=== PATIENT | female | born 1970 | race African-American/Black ===

== ENCOUNTER 2017-11-16 10:26 | Inpatient (IN) | payer OTHER ==
[2017-11-16 11:03] VITALS: BMI 26.3
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
[2017-11-16] MEDS ORDERED: MAGNESIUM CITRATE 300 ML BOTTLE PO PRN (16:28)
[2017-11-16] MEDS ORDERED: MAG HYDROX/AL HYDROX/SIMETH 30 ML UNIT-DOSE CUP PO PRN (16:28)
[2017-11-16] MEDS ORDERED: LOPERAMIDE HCL 2 MG CAPSULE PO PRN (16:28)
[2017-11-16] MEDS ORDERED: ACETAMINOPHEN 325 MG TABLET (FP) PO PRN (16:28)
[2017-11-16] MEDS ORDERED: MENTHOL/PHENOL 1 EACH UD MM PRN (16:28)
[2017-11-16] MEDS ORDERED: MAGNESIUM HYDROX 2400MG/30ML ORAL SUSPENSION 30 ML CUP PO PRN (16:28)
[2017-11-16] MEDS ORDERED: P-EPHED 60MG/TRIPROLIDI 2.5MG TABLET PO PRN (16:28)
[2017-11-16] MEDS ORDERED: IBUPROFEN 400 MG TABLET (FP) PO PRN (16:28)
[2017-11-16] MEDS ORDERED: hydrOXYzine PAMOATE 25 MG CAPSULE (FP) PO PRN (16:28)
[2017-11-16] MEDS ORDERED: guaiFENesin/D-METHORPHAN HB 10 ML UNIT-DOSE CUPS PO PRN (16:28)
[2017-11-16] MEDS ORDERED: TUBERCULIN PPD 5 TU/0.1ML VIAL ID ONE ×2 (19:21→19:25)
[2017-11-16] MEDS: THIAMINE HCL 100 MG TABLET (FP) PO SCH (21:58)
[2017-11-16] MEDS: PATIENT'S OWN MEDICATION (NON-FORMULARY) (Nitrofurantoin Monohyd/M-Cryst [Nitrofurantoin M PO SCH (21:58)
[2017-11-16] MEDS: metroNIDAZOLE 250 MG TABLET PO SCH (21:58)
[2017-11-16] MEDS: NICOTINE POLACRILEX 2 MG GUM BUC PRN (22:00)
[2017-11-17] MEDS: amLODIPine BESYLATE 10 MG TABLET (FP) PO SCH (09:38)
[2017-11-17] MEDS: metroNIDAZOLE 250 MG TABLET PO SCH ×2 (09:38→21:26)
[2017-11-17] MEDS: PATIENT'S OWN MEDICATION (NON-FORMULARY) (Nitrofurantoin Monohyd/M-Cryst [Nitrofurantoin M PO SCH ×2 (09:39→21:26)
[2017-11-17] MEDS: PRENATAL VITAMINS W/ FOLIC ACID TABLET (FP) PO SCH (09:39)
[2017-11-17 10:53] LABS: URINE APPEARANCE TURBID; URINE BILIRUBIN NEGATIVE (<2.0 mg/dL); URINE GLUCOSE (UA) NEGATIVE (NEGATIVE); URINE KETONE NEGATIVE (NEGATIVE); URINE LEUK ESTERASE NEGATIVE (NEGATIVE); URINE NITRITE NEGATIVE (NEGATIVE); URINE UROBILINOGEN NEGATIVE mg/dL (0.2-1.0)
[2017-11-17 11:09] LABS: URINE PROTEIN 2+ (NEGATIVE)
[2017-11-17 11:10] LABS: URINE COLOR YELLOW
[2017-11-17 11:22] LABS: CALCIUM OXALATE CRYSTALS MANY /hpf (NONE SEEN); EPI CELLS RARE /HPF (FEW); URINE BACTERIA FEW /hpf (NONE SEEN); URINE HYALINE CAST 10 /lpf; URINE MUCUS MODERATE
[2017-11-17 12:23] LABS: HEMATOCRIT 40.5 % (32.4-45.2); HEMOGLOBIN 13.5 GM/dL (10.7-15.3); MCH 29.4 pg (25.7-33.7); MCHC 33.2 g/dl (32.0-36.0); MEAN CELL VOLUME 88.4 fl (80-96); MEAN PLT VOLUME 9.3 fl (7.5-11.1); PLATELET COUNT 233 K/MM3 (134-434); RBC 4.58 M/mm3 (3.60-5.2); RDW 15.5 % (11.6-15.6); WHITE BLOOD COUNT 5.1 K/mm3 (4.0-10.0)
[2017-11-17 12:45] LABS: ALBUMIN 3.1 g/dl (3.4-5.0); ALK PHOS 60 U/L (45-117); ANION GAP 10 MMOL/L (8-16); BILIRUBIN,TOTAL 0.4 mg/dL (0.2-1); BLOOD UREA NITROGEN 13 mg/dL (7-18); CALCIUM 9.2 mg/dL (8.5-10.1); CHLORIDE 107 mmol/L (98-107); CO2 26 mmol/L (21-32); GLUCOSE,RANDOM 121 mg/dL (74-106); POTASSIUM 3.6 mmol/L (3.5-5.1); SGOT/AST 17 U/L (15-37); SGPT/ALT 17 U/L (13-61); SODIUM 143 mmol/L (136-145); TOT PROT 6.2 g/dl (6.4-8.2)
--- NOTE | 2017-11-17 15:52 | EKG ---
Test Reason : Blood Pressure : / mmHG Vent. Rate : 069 BPM Atrial Rate : 069 BPM P-R Int : 148 ms QRS Dur : 072 ms QT Int : 392 ms P-R-T Axes : 049 029 045 degrees QTc Int : 420 ms NORMAL SINUS RHYTHM WITH SINUS ARRHYTHMIA POSSIBLE LEFT ATRIAL ENLARGEMENT LEFT VENTRICULAR HYPERTROPHY ABNORMAL ECG WHEN COMPARED WITH ECG OF 23-NOV-2015 21:16, NO SIGNIFICANT CHANGE WAS FOUND Confirmed by MD Gerhard, Jaylan ([id number]) on 11/17/2017 3:51:38 PM Referred By: Confirmed By:Jaylan Hennessy MD
[2017-11-17] MEDS ORDERED: PT OWN MED DRAWER 7, Y5N ONE (20:06)
[2017-11-17] MEDS: THIAMINE HCL 100 MG TABLET (FP) PO SCH (21:26)
[2017-11-17] MEDS: MELATONIN 5 MG TABLETS PO PRN (21:27)
--- NOTE | 2017-11-17 21:50 | PN ---
S Progress Note Note: Psychiatric nurse practitioner soil conservationist note: Chart reviewed. Backup Administrator able to speak to patient on phone. Pt. reports h/o accepting seroquel 200mg. States she has received prescriptions from [facility]. Reports taking seroquel 200mg two nights ago. Will order Seroquel 200mg qhs.
[2017-11-17] MEDS: QUEtiapine FUMARATE 200 MG TABLET PO SCH (21:58)
[2017-11-18] MEDS ORDERED: PT OWN MED DRAWER 7, Y5N ONE (08:20)
[2017-11-18] MEDS: PATIENT'S OWN MEDICATION (NON-FORMULARY) (Nitrofurantoin Monohyd/M-Cryst [Nitrofurantoin M PO SCH ×2 (10:02→21:05)
[2017-11-18] MEDS: metroNIDAZOLE 250 MG TABLET PO SCH ×2 (10:03→21:05)
[2017-11-18] MEDS: amLODIPine BESYLATE 10 MG TABLET (FP) PO SCH (10:03)
[2017-11-18] MEDS: PRENATAL VITAMINS W/ FOLIC ACID TABLET (FP) PO SCH (10:05)
--- NOTE | 2017-11-18 10:51 | PN ---
[facility] Progress Note Note: Pt c/o that she has not been seen by psychiatrist since her admission. Review of her chart shows that the psychiatrist had a discussion with her yesterday and had ordered Seroquel. Will inform pt and put a psych consult request in for pt.
[2017-11-18] MEDS: NICOTINE POLACRILEX 2 MG GUM BUC PRN (15:26)
[2017-11-18] MEDS: QUEtiapine FUMARATE 200 MG TABLET PO SCH (21:05)
[2017-11-18] MEDS: THIAMINE HCL 100 MG TABLET (FP) PO SCH (21:05)
[2017-11-19] MEDS: MELATONIN 5 MG TABLETS PO PRN (00:32)
[2017-11-19 06:41] VITALS: BP 148/98; PULSE 89; TEMP 98.1
--- NOTE | 2017-11-19 08:46 | PN ---
[facility] Progress Note Note: Patient decided to sign out today AMA despite our strong recommendations to continue inpatient rehabilitation treatment.Patient states that she doesnt have appropriate clothes (?).Patient has no motivations for treatment.she will continue to address her issues on outpatient basis.
== END 2017-11-19 08:55 | disposition home or self-care (01) | DRG 772 ==
LOC: YASAS 10:26 → Y3E 16:45
PROC: HZ42ZZZ Group Counseling for Substance Abuse Treatment, Cognitive-Behavioral (ICD-10-PCS; principal; 2017-11-16)
DX: F10.230 Alcohol dependence with withdrawal, uncomplicated (principal); F14.20 Cocaine dependence, uncomplicated; F17.210 Nicotine dependence, cigarettes, uncomplicated; F31.9 Bipolar disorder, unspecified; F25.0 Schizoaffective disorder, bipolar type; F32.9 Major depressive disorder, single episode, unspecified; F41.9 Anxiety disorder, unspecified; F43.10 Post-traumatic stress disorder, unspecified; I10 Essential (primary) hypertension; K21.9 Gastro-esophageal reflux disease without esophagitis
CPT/HCPCS: 36415; 80053; 81003; 81015; 85027; 86593; 93005; 93010

== ENCOUNTER 2022-03-20 17:57 | Inpatient (IN) | payer OTHER ==
[2022-03-20 18:39] VITALS: BMI 29.5
[2022-03-20] MEDS ORDERED: POLYETHYLENE GLYCOL (HEALTHYLAX) 3350 17 GM PACKET PO PRN (21:10)
[2022-03-20] MEDS ORDERED: MAGNESIUM HYDROX 2400MG/30ML ORAL SUSPENSION 30 ML CUP PO PRN (21:10)
[2022-03-20] MEDS ORDERED: LOPERAMIDE HCL 2 MG CAPSULE PO PRN (21:10)
[2022-03-20] MEDS ORDERED: IBUPROFEN 400 MG TABLET (FP) PO PRN (21:10)
[2022-03-20] MEDS ORDERED: P-EPHED 60MG/TRIPROLIDI 2.5MG TABLET PO PRN (21:10)
[2022-03-20] MEDS ORDERED: guaiFENesin 200 MG/10 ML 10 ML UNIT-DOSE CUPS PO PRN (21:10)
[2022-03-20] MEDS ORDERED: BENZOCAINE/MENTHOL (CHLORASEPTIC ) LOZENGE MM PRN (21:10)
[2022-03-20] MEDS: ACETAMINOPHEN 325 MG TABLET (FP) PO PRN (21:52)
[2022-03-21] MEDS ORDERED: ALBUTEROL SO4 HFA INHALER IH PRN ×2 (00:05→12:38)
[2022-03-21] MEDS ORDERED: ALBUTEROL SO4 HFA INHALER IH ONE (00:11)
[2022-03-21] MEDS ORDERED: TUBERCULIN PPD 5 TU/0.1ML VIAL ID ONE (01:17)
[2022-03-21] MEDS: THIAMINE HCL 100 MG TABLET (FP) PO SCH ×2 (01:24→21:10)
[2022-03-21] MEDS: MELATONIN 5 MG TABLETS PO SCH ×2 (01:24→21:10)
[2022-03-21 01:47] VITALS: RESP 18
[2022-03-21] MEDS: ACETAMINOPHEN 325 MG TABLET (FP) PO PRN ×2 (06:44→18:17)
[2022-03-21] MEDS: PRENATAL VITAMINS W/ FOLIC ACID TABLET (FP) PO SCH (11:01)
[2022-03-21] MEDS: NICOTINE 14 MG/24 HOURS TOPICAL PATCH TD SCH (11:01)
[2022-03-21 11:14] LABS: HEMATOCRIT 35.5 % (32.4-45.2); HEMOGLOBIN 11.5 GM/dL (10.7-15.3); MCHC 32.3 g/dl (32.0-36.0); MEAN CELL VOLUME 89.8 fl (80-96); MEAN PLT VOLUME 8.7 fl (7.5-11.1); PLATELET COUNT 229 10^3/uL (134-434); RBC 3.96 M/mm3 (3.60-5.2); RDW 16.1 % (11.6-15.6); WHITE BLOOD COUNT 5.7 K/mm3 (4.0-10.0)
[2022-03-21 11:17] LABS: PH,URINE 5.5 (5.0-8.0); URINE APPEARANCE CLOUDY; URINE BILIRUBIN NEGATIVE (NEGATIVE); URINE COLOR YELLOW; URINE GLUCOSE (UA) NEGATIVE (NEGATIVE); URINE KETONE TRACE (NEGATIVE); URINE LEUK ESTERASE NEGATIVE (NEGATIVE); URINE NITRITE NEGATIVE (NEGATIVE); URINE PROTEIN NEGATIVE (NEGATIVE); URINE UROBILINOGEN 0.2 mg/dL (0.2-1.0)
[2022-03-21 12:45] LABS: CALCIUM 8.7 mg/dL (8.5-10.1)
[2022-03-21 12:46] LABS: ALBUMIN 3.1 g/dl (3.4-5.0)
[2022-03-21 12:49] LABS: CREATININE 0.9 mg/dL (0.55-1.3)
[2022-03-21 12:50] LABS: TOT PROT 5.9 g/dl (6.4-8.2)
[2022-03-21 12:51] LABS: BILIRUBIN,TOTAL 0.3 mg/dL (0.2-1)
[2022-03-21] MEDS ORDERED: TORSEMIDE 10 MG TABLET PO SCH (13:00)
[2022-03-21] MEDS ORDERED: LURASIDONE HCL 20 MG TABLET PO ONE (13:00)
[2022-03-21] MEDS: hydrOXYzine PAMOATE 25 MG CAPSULE (FP) PO PRN ×2 (13:08→20:10)
[2022-03-21] MEDS: SACUBITRIL/VALSARTAN 49 MG-51 MG TABLET PO SCH ×2 (13:50→21:11)
[2022-03-21] MEDS: FLUTICASONE/UMECLIDIN/VILANTER(100-62.5-25 TRELEGY ELLIPTA) INAHLER IH SCH (13:51)
[2022-03-21] MEDS: METOPROLOL TARTRATE 25 MG TABLET (FP) PO SCH (13:55)
[2022-03-21] MEDS: NICOTINE POLACRILEX 2 MG GUM BC PRN (20:00)
[2022-03-21] MEDS: traZODone HCL 100 MG TABLET (FP) PO SCH (21:10)
[2022-03-21] MEDS: ATORVASTATIN CA 40 MG TABLET (FP) PO SCH (21:10)
[2022-03-21] MEDS: MAG HYDROX/AL HYDROX/SIMETH 30 ML UNIT-DOSE CUP PO PRN (22:53)
[2022-03-22] MEDS: hydrOXYzine PAMOATE 25 MG CAPSULE (FP) PO PRN ×3 (03:28→17:19)
[2022-03-22] MEDS: ACETAMINOPHEN 325 MG TABLET (FP) PO PRN ×3 (03:28→17:19)
[2022-03-22] MEDS: MAG HYDROX/AL HYDROX/SIMETH 30 ML UNIT-DOSE CUP PO PRN (04:07)
[2022-03-22] MEDS: PRENATAL VITAMINS W/ FOLIC ACID TABLET (FP) PO SCH (10:26)
[2022-03-22] MEDS: SACUBITRIL/VALSARTAN 49 MG-51 MG TABLET PO SCH ×2 (10:26→21:21)
[2022-03-22] MEDS: METOPROLOL TARTRATE 25 MG TABLET (FP) PO SCH (10:27)
[2022-03-22] MEDS: TORSEMIDE 20 MG TABLET (FP) PO SCH (10:27)
[2022-03-22] MEDS: NICOTINE 14 MG/24 HOURS TOPICAL PATCH TD SCH (10:28)
[2022-03-22] MEDS: FLUTICASONE/UMECLIDIN/VILANTER(100-62.5-25 TRELEGY ELLIPTA) INAHLER IH SCH (10:28)
[2022-03-22] MEDS ORDERED: LURASIDONE HCL 20 MG TABLET PO ONE (12:15)
[2022-03-22] MEDS: LURASIDONE HCL 20 MG TABLET PO SCH (12:47)
[2022-03-22] MEDS: NAPROXEN 500 MG TABLET PO SCH ×2 (16:06→21:21)
[2022-03-22] MEDS: ATORVASTATIN CA 40 MG TABLET (FP) PO SCH (21:21)
[2022-03-22] MEDS: THIAMINE HCL 100 MG TABLET (FP) PO SCH (21:21)
[2022-03-22] MEDS: MELATONIN 5 MG TABLETS PO SCH (21:21)
[2022-03-22] MEDS: traZODone HCL 100 MG TABLET (FP) PO SCH (21:21)
[2022-03-23] MEDS: hydrOXYzine PAMOATE 25 MG CAPSULE (FP) PO PRN ×2 (06:12→21:32)
[2022-03-23] MEDS: BISMUTH SUBSALICYLATE 524 MG/30 ML PO PRN (06:12)
[2022-03-23] MEDS: ACETAMINOPHEN 325 MG TABLET (FP) PO PRN ×2 (06:37→19:09)
[2022-03-23] MEDS: NAPROXEN 500 MG TABLET PO SCH ×2 (09:03→21:32)
[2022-03-23] MEDS: PRENATAL VITAMINS W/ FOLIC ACID TABLET (FP) PO SCH (10:28)
[2022-03-23] MEDS: METOPROLOL TARTRATE 25 MG TABLET (FP) PO SCH (10:29)
[2022-03-23] MEDS: SACUBITRIL/VALSARTAN 49 MG-51 MG TABLET PO SCH ×2 (10:29→21:33)
[2022-03-23] MEDS: LURASIDONE HCL 20 MG TABLET PO SCH (10:29)
[2022-03-23] MEDS: NICOTINE 14 MG/24 HOURS TOPICAL PATCH TD SCH (10:29)
[2022-03-23] MEDS: FLUTICASONE/UMECLIDIN/VILANTER(100-62.5-25 TRELEGY ELLIPTA) INAHLER IH SCH (10:30)
[2022-03-23] MEDS: TORSEMIDE 20 MG TABLET (FP) PO SCH (10:30)
[2022-03-23] MEDS: ATORVASTATIN CA 40 MG TABLET (FP) PO SCH (21:32)
[2022-03-23] MEDS: traZODone HCL 100 MG TABLET (FP) PO SCH (21:32)
[2022-03-23] MEDS: MELATONIN 5 MG TABLETS PO SCH (21:32)
[2022-03-23] MEDS: THIAMINE HCL 100 MG TABLET (FP) PO SCH (21:33)
[2022-03-24] MEDS: BISMUTH SUBSALICYLATE 524 MG/30 ML PO PRN (04:34)
[2022-03-24] MEDS: hydrOXYzine PAMOATE 25 MG CAPSULE (FP) PO PRN ×3 (04:34→19:20)
[2022-03-24] MEDS: ACETAMINOPHEN 325 MG TABLET (FP) PO PRN ×2 (04:54→19:20)
[2022-03-24] MEDS: FLUTICASONE/UMECLIDIN/VILANTER(100-62.5-25 TRELEGY ELLIPTA) INAHLER IH SCH (10:04)
[2022-03-24] MEDS: NAPROXEN 500 MG TABLET PO SCH ×2 (10:04→21:23)
[2022-03-24] MEDS: SACUBITRIL/VALSARTAN 49 MG-51 MG TABLET PO SCH ×2 (10:04→21:24)
[2022-03-24] MEDS: PRENATAL VITAMINS W/ FOLIC ACID TABLET (FP) PO SCH (10:04)
[2022-03-24] MEDS: TORSEMIDE 20 MG TABLET (FP) PO SCH (10:04)
[2022-03-24] MEDS: LURASIDONE HCL 20 MG TABLET PO SCH (10:04)
[2022-03-24] MEDS: NICOTINE 14 MG/24 HOURS TOPICAL PATCH TD SCH (10:05)
[2022-03-24] MEDS: METOPROLOL TARTRATE 25 MG TABLET (FP) PO SCH (10:07)
[2022-03-24] MEDS: MELATONIN 5 MG TABLETS PO SCH (21:23)
[2022-03-24] MEDS: ATORVASTATIN CA 40 MG TABLET (FP) PO SCH (21:23)
[2022-03-24] MEDS: THIAMINE HCL 100 MG TABLET (FP) PO SCH (21:23)
[2022-03-24] MEDS: traZODone HCL 50 MG TABLET (FP) PO SCH (21:24)
[2022-03-25] MEDS: BISMUTH SUBSALICYLATE 524 MG/30 ML PO PRN (02:18)
[2022-03-25] MEDS: ACETAMINOPHEN 325 MG TABLET (FP) PO PRN ×2 (02:33→10:37)
[2022-03-25] MEDS: MAG HYDROX/AL HYDROX/SIMETH 30 ML UNIT-DOSE CUP PO PRN (06:48)
[2022-03-25] MEDS: NICOTINE 14 MG/24 HOURS TOPICAL PATCH TD SCH (10:00)
[2022-03-25] MEDS ORDERED: metroNIDAZOLE 0.75% VAGINAL GEL 70 GM TUBE VG ONE (10:03)
[2022-03-25] MEDS ORDERED: FLUCONAZOLE 150 MG TABLET PO ONE (10:30)
[2022-03-25] MEDS: PRENATAL VITAMINS W/ FOLIC ACID TABLET (FP) PO SCH (10:36)
[2022-03-25] MEDS: METOPROLOL TARTRATE 25 MG TABLET (FP) PO SCH (10:36)
[2022-03-25] MEDS: NAPROXEN 500 MG TABLET PO SCH ×2 (10:36→21:37)
[2022-03-25] MEDS: hydrOXYzine PAMOATE 25 MG CAPSULE (FP) PO PRN ×2 (10:37→17:58)
[2022-03-25] MEDS: TORSEMIDE 20 MG TABLET (FP) PO SCH (10:42)
[2022-03-25] MEDS: FLUTICASONE/UMECLIDIN/VILANTER(100-62.5-25 TRELEGY ELLIPTA) INAHLER IH SCH (10:42)
[2022-03-25] MEDS: LURASIDONE HCL 20 MG TABLET PO SCH (10:43)
[2022-03-25] MEDS: SACUBITRIL/VALSARTAN 49 MG-51 MG TABLET PO SCH ×2 (10:43→21:38)
[2022-03-25] MEDS ORDERED: COLLOIDAL OATMEAL 1 BAR EACH TP PRN (19:07)
[2022-03-25] MEDS: THIAMINE HCL 100 MG TABLET (FP) PO SCH (21:36)
[2022-03-25] MEDS: traZODone HCL 50 MG TABLET (FP) PO SCH (21:36)
[2022-03-25] MEDS: ATORVASTATIN CA 40 MG TABLET (FP) PO SCH (21:36)
[2022-03-25] MEDS: MELATONIN 5 MG TABLETS PO SCH (21:37)
[2022-03-25] MEDS ORDERED: MICONAZOLE NITRATE 2% VAGINAL CREAM 45 GM TUBE VG SCH (22:00)
[2022-03-26] MEDS: hydrOXYzine PAMOATE 25 MG CAPSULE (FP) PO PRN ×3 (02:42→18:49)
[2022-03-26] MEDS: BISMUTH SUBSALICYLATE 524 MG/30 ML PO PRN (02:42)
[2022-03-26] MEDS: PRENATAL VITAMINS W/ FOLIC ACID TABLET (FP) PO SCH (09:57)
[2022-03-26] MEDS: METOPROLOL TARTRATE 25 MG TABLET (FP) PO SCH (09:57)
[2022-03-26] MEDS: NAPROXEN 500 MG TABLET PO SCH (09:58)
[2022-03-26] MEDS: TORSEMIDE 20 MG TABLET (FP) PO SCH (09:58)
[2022-03-26] MEDS: LURASIDONE HCL 20 MG TABLET PO SCH (09:59)
[2022-03-26] MEDS: NICOTINE 14 MG/24 HOURS TOPICAL PATCH TD SCH (10:00)
[2022-03-26] MEDS: ACETAMINOPHEN 325 MG TABLET (FP) PO PRN ×2 (10:00→18:50)
[2022-03-26] MEDS: FLUTICASONE/UMECLIDIN/VILANTER(100-62.5-25 TRELEGY ELLIPTA) INAHLER IH SCH (10:00)
[2022-03-26] MEDS: SACUBITRIL/VALSARTAN 49 MG-51 MG TABLET PO SCH ×2 (10:00→21:19)
[2022-03-26] MEDS: THIAMINE HCL 100 MG TABLET (FP) PO SCH (21:19)
[2022-03-26] MEDS: MELATONIN 5 MG TABLETS PO SCH (21:19)
[2022-03-26] MEDS: traZODone HCL 50 MG TABLET (FP) PO SCH (21:19)
[2022-03-26] MEDS: ATORVASTATIN CA 40 MG TABLET (FP) PO SCH (21:19)
[2022-03-26] MEDS: metroNIDAZOLE 0.75% VAGINAL GEL 70 GM TUBE VG SCH (21:20)
[2022-03-27] MEDS: BISMUTH SUBSALICYLATE 524 MG/30 ML PO PRN (03:17)
[2022-03-27] MEDS: LURASIDONE HCL 20 MG TABLET PO SCH (10:00)
[2022-03-27] MEDS: TORSEMIDE 20 MG TABLET (FP) PO SCH (10:00)
[2022-03-27] MEDS: METOPROLOL TARTRATE 25 MG TABLET (FP) PO SCH (10:00)
[2022-03-27] MEDS: SACUBITRIL/VALSARTAN 49 MG-51 MG TABLET PO SCH ×2 (10:00→21:41)
[2022-03-27] MEDS: PRENATAL VITAMINS W/ FOLIC ACID TABLET (FP) PO SCH (10:00)
[2022-03-27] MEDS: NICOTINE 14 MG/24 HOURS TOPICAL PATCH TD SCH (10:01)
[2022-03-27] MEDS: FLUTICASONE/UMECLIDIN/VILANTER(100-62.5-25 TRELEGY ELLIPTA) INAHLER IH SCH (10:01)
[2022-03-27] MEDS: hydrOXYzine PAMOATE 25 MG CAPSULE (FP) PO PRN ×2 (12:38→21:40)
[2022-03-27] MEDS: IBUPROFEN 600 MG TABLET (FP) PO PRN (13:00)
[2022-03-27] MEDS: traZODone HCL 50 MG TABLET (FP) PO SCH (21:39)
[2022-03-27] MEDS: ATORVASTATIN CA 40 MG TABLET (FP) PO SCH (21:40)
[2022-03-27] MEDS: THIAMINE HCL 100 MG TABLET (FP) PO SCH (21:40)
[2022-03-27] MEDS: MELATONIN 5 MG TABLETS PO SCH (21:40)
[2022-03-27] MEDS: metroNIDAZOLE 0.75% VAGINAL GEL 70 GM TUBE VG SCH (21:41)
[2022-03-28] MEDS: BISMUTH SUBSALICYLATE 524 MG/30 ML PO PRN (03:05)
[2022-03-28] MEDS ORDERED: FLUCONAZOLE 50 MG TABLET PO SCH (10:00)
[2022-03-28] MEDS: PRENATAL VITAMINS W/ FOLIC ACID TABLET (FP) PO SCH (10:18)
[2022-03-28] MEDS: METOPROLOL TARTRATE 25 MG TABLET (FP) PO SCH (10:20)
[2022-03-28] MEDS: LURASIDONE HCL 20 MG TABLET PO SCH (10:20)
[2022-03-28] MEDS: FLUTICASONE/UMECLIDIN/VILANTER(100-62.5-25 TRELEGY ELLIPTA) INAHLER IH SCH (10:21)
[2022-03-28] MEDS: FLUCONAZOLE 50 MG TABLET PO SCH (10:21)
[2022-03-28] MEDS: SACUBITRIL/VALSARTAN 49 MG-51 MG TABLET PO SCH ×2 (10:21→21:18)
[2022-03-28] MEDS: TORSEMIDE 20 MG TABLET (FP) PO SCH (10:21)
[2022-03-28] MEDS: NICOTINE 14 MG/24 HOURS TOPICAL PATCH TD SCH (10:21)
[2022-03-28] MEDS: IBUPROFEN 600 MG TABLET (FP) PO PRN (10:22)
[2022-03-28] MEDS ORDERED: PANTOPRAZOLE 20 MG TABLET PO ONE (11:00)
[2022-03-28] MEDS: NICOTINE POLACRILEX 2 MG GUM BC PRN (16:04)
[2022-03-28] MEDS: THIAMINE HCL 100 MG TABLET (FP) PO SCH (21:17)
[2022-03-28] MEDS: ATORVASTATIN CA 40 MG TABLET (FP) PO SCH (21:17)
[2022-03-28] MEDS: MELATONIN 5 MG TABLETS PO SCH (21:18)
[2022-03-28] MEDS: hydrOXYzine PAMOATE 25 MG CAPSULE (FP) PO PRN (21:18)
[2022-03-28] MEDS: traZODone HCL 50 MG TABLET (FP) PO SCH (21:18)
[2022-03-28] MEDS: PANTOPRAZOLE 20 MG TABLET PO SCH (21:21)
[2022-03-28] MEDS: metroNIDAZOLE 0.75% VAGINAL GEL 70 GM TUBE VG SCH ×2 (21:23→21:43)
[2022-03-29] MEDS: BISMUTH SUBSALICYLATE 524 MG/30 ML PO PRN (06:44)
[2022-03-29 07:23] VITALS: TEMP 97.9
[2022-03-29] MEDS: TORSEMIDE 20 MG TABLET (FP) PO SCH (10:00)
[2022-03-29] MEDS: PRENATAL VITAMINS W/ FOLIC ACID TABLET (FP) PO SCH (10:00)
[2022-03-29] MEDS: LURASIDONE HCL 20 MG TABLET PO SCH (10:01)
[2022-03-29] MEDS: NICOTINE 14 MG/24 HOURS TOPICAL PATCH TD SCH (10:02)
[2022-03-29] MEDS: PANTOPRAZOLE 20 MG TABLET PO SCH (10:02)
[2022-03-29] MEDS: SACUBITRIL/VALSARTAN 49 MG-51 MG TABLET PO SCH (10:02)
[2022-03-29] MEDS: METOPROLOL TARTRATE 25 MG TABLET (FP) PO SCH (10:02)
[2022-03-29] MEDS: FLUCONAZOLE 50 MG TABLET PO SCH (10:02)
[2022-03-29] MEDS: FLUTICASONE/UMECLIDIN/VILANTER(100-62.5-25 TRELEGY ELLIPTA) INAHLER IH SCH (10:04)
[2022-03-29 10:48] VITALS: BP 144/84; PULSE 97
== END 2022-03-29 10:15 | disposition home or self-care (01) | DRG 772 ==
LOC: YASAS 17:57 → Y5N 03-21 00:59
PROVIDERS: ADMIT Allergy & Immunology; ATTEND Psychiatry & Neurology Pain Medicine
PROC: HZ42ZZZ Group Counseling for Substance Abuse Treatment, Cognitive-Behavioral (ICD-10-PCS; principal; 2022-03-21)
DX: F10.20 Alcohol dependence, uncomplicated (principal); F14.20 Cocaine dependence, uncomplicated; F17.210 Nicotine dependence, cigarettes, uncomplicated; F31.9 Bipolar disorder, unspecified; F25.9 Schizoaffective disorder, unspecified; F19.24 Other psychoactive substance dependence with psychoactive substance-induced mood disorder; E78.5 Hyperlipidemia, unspecified; I11.0 Hypertensive heart disease with heart failure; I50.9 Heart failure, unspecified; J44.9 Chronic obstructive pulmonary disease, unspecified; K21.9 Gastro-esophageal reflux disease without esophagitis; B35.3 Tinea pedis; N76.0 Acute vaginitis; M25.561 Pain in right knee; Z99.89 Dependence on other enabling machines and devices; Z28.310 Unvaccinated for COVID-19; Z28.9 Immunization not carried out for unspecified reason
CPT/HCPCS: 36415; 80053; 81003; 82962; 85027; 86780; 87811; 93005; 93010; C9803-CS; U0003; U0005